=== PATIENT | female | born 1960 | race Caucasian/White ===

== ENCOUNTER 2020-06-02 12:15 | Emergency (ER) | payer OTHER ==
[~2020-06-02] VITALS: Ht 160 cm; Wt 59.0 kg
[~2020-06-02 12:15] MED LIST: TOPAMAX50 M1 PO
[2020-06-02 12:53] VITALS: Ht 160 cm; Wt 59.0 kg
[2020-06-02 14:00] VITALS: BP 106/71
== END 2020-06-02 14:00 | disposition home or self-care (01) ==
LOC: ED 12:15
DX: B02.9 Zoster without complications (principal); J45.909 Unspecified asthma, uncomplicated; F17.210 Nicotine dependence, cigarettes, uncomplicated; I10 Essential (primary) hypertension; Z98.890 Other specified postprocedural states; Z90.710 Acquired absence of both cervix and uterus
CPT/HCPCS: 99406